=== PATIENT | male | born 1950 | race Hispanic/Latino ===

== ENCOUNTER → 2025-05-21 | Day surgery (SDC) | payer MEDICARE ==
[~2025-05-21] MED LIST: ACETAMINOPHEN 1000 MG/100 ML IV PRN; ASPIRIN 325 MG TAB PO SCH; CELECOXIB 100 MG CAP PO SCH; DEXAMETHASONE SOD PHOS INJ 4 MG/ML SDV ONE; DIPHENHYDRAMINE HCL INJ 50 MG/ML VIAL IV PRN; DOCUSATE SODIUM 100 MG CAP PO PRN; EPHEDRINE SULFATE INJ 50 MG/ML VIAL ONE; FENTANYL CITRATE/PF 100MCG/2 ML INJ ONE; GABAPENTIN 300 MG CAP ONE; GLYCOPYRROLATE INJ 0.2 MG/ML VIAL ONE; HYDROCODONE/APAP 5MG-325MG TAB PO PRN; HYDROCODONE/APAP 7.5MG-325MG 1 EA TAB PO PRN; LABETALOL HCL 20 ML ONE; LIDOCAINE HCL 2% LOCAL INJ 5 ML SDV VIAL INJ ONE; LUMIGAN2.5 M1 OU; ONDANSETRON HCL INJ 2MG/ML 2ML 2 MG/ML VIAL IV PRN; ONDANSETRON HCL INJ 2MG/ML 2ML 2 MG/ML VIAL ONE; PROPOFOL IV EMULSION 10 MG/ML 20 ML VIAL ONE; ROCURONIUM BROMIDE 1 ML IV ONE; ROPIVACAINE/EPI/CLONIDINE/KET 50 ML SYRINGE INJ ONE; SODIUM CHLORIDE 0.9% 1000ML 1,000 ML IV SCH; SUGAMMADEX SODIUM 200 MG/2 ML VIAL IV ONE
[2025-05-21] MEDS: DEXAMETHASONE SOD PHOS 10 MG/1 ML VIAL ONE (07:17)
[2025-05-21] MEDS: GABAPENTIN 300 MG CAP ONE (07:17)
[2025-05-21] MEDS: LACTATED RINGER'S 1,000 ML ONE (07:18)
[2025-05-21] MEDS: CEFAZOLIN SODIUM 2 GM ONE (07:18)
[2025-05-21] MEDS: CELECOXIB 200 MG CAP ONE (07:19)
[2025-05-21] MEDS: HYDROCODONE/APAP 7.5MG-325MG 1 EA TAB PO ONE (10:37)
[2025-05-21] MEDS: ONDANSETRON HCL INJ 2MG/ML 2ML 2 MG/ML VIAL IV ONE (14:08)
[2025-05-21 14:20] VITALS: BP 134/70; PULSE 51; RESP 17; O2SAT 98
== END | disposition home health service (06) ==
LOC: OR 05:50
PROVIDERS: ATTEND Specialist
DX: M17.11 Unilateral primary osteoarthritis, right knee (principal); R00.1 Bradycardia, unspecified; Z01.812 Encounter for preprocedural laboratory examination; Z86.11 Personal history of tuberculosis
CPT/HCPCS: 86850; 86900; C1713; C1776; J1100; J2003; J2405